=== PATIENT | male | born 1955 | race Caucasian/White ===

== ENCOUNTER 2020-09-02 08:33 | Outpatient (CLI) | payer OTHER, SELFPAY ==
--- NOTE | 2020-09-02 09:00 | ECG_ITS ---
Measurements Intervals [place] Rate: 57 P: [place]: 0 QRS: 53 QRSD: 112 T: 66 QT: 455 QTc: 445 Interpretive Statements ATRIAL FIBRILLATION WITH SLOW VENTRICULAR RESPONSE INCOMPLETE RIGHT BUNDLE BRANCH BLOCK BORDERLINE ST-T WAVE ABNORMALITY- HIGH LATERAL LEADS BASELINE ARTIFACT- II, III, AVF, V4 ABNORMAL ECG Electronically Signed On 09-02-2020 10:38:20 CDT by Lei Forman D.O.
== END 2020-09-02 08:34 | disposition home or self-care (01) ==
PROVIDERS: PCP Internal Medicine
DX: I48.91 Unspecified atrial fibrillation (principal)
CPT/HCPCS: 93005